=== PATIENT | male | born 1960 | race Hispanic/Latino ===

== ENCOUNTER 2023-06-01 08:01 | Emergency (ER) | payer MEDICARE ==
[~2023-06-01] VITALS: Ht 172.7 cm; Wt 85.7 kg
[2023-06-01] MEDS ORDERED: TETANUS/DIPHTHERIA TOX ADULT 0.5 ML SYR ONE ×2 (08:29→19:47)
[2023-06-01] MEDS: TETANUS/DIPHTHERIA TOX ADULT 0.5 ML SYR IM ONE (08:30)
[2023-06-01] MEDS ORDERED: AMOX TR-K CLV1 EAC2 PO (10:37)
[2023-06-01 10:58] VITALS: BP 132/81; PULSE 61; RESP 16; O2SAT 98
== END 2023-06-01 10:55 | disposition home or self-care (01) ==
LOC: ER 08:07
DX: S05.12XA Contusion of eyeball and orbital tissues, left eye, initial encounter (principal); S09.92XA Unspecified injury of nose, initial encounter; Y04.0XXA Assault by unarmed brawl or fight, initial encounter; Y92.89 Other specified places as the place of occurrence of the external cause; G70.00 Myasthenia gravis without (acute) exacerbation; K21.9 Gastro-esophageal reflux disease without esophagitis; F17.210 Nicotine dependence, cigarettes, uncomplicated
CPT/HCPCS: 70450; 70486; 72125; 90471; 90714; 99283

== ENCOUNTER → 2023-09-23 | Day surgery (SDC) | payer MEDICARE ==
[~2023-09-23] MED LIST: AMOX TR-K CLV1 EAC2 PO; CELEBREX100 MG PO; GLYCOPYRROLATE INJ 0.2 MG/ML VIAL ONE; LIDOCAINE HCL 2% LOCAL INJ 5 ML SDV VIAL INJ ONE; MESTINON60 MG PO; MULTI-VITAMIN1 EACH PO; PANTOPRAZOLE SO40 MG PO; PROPOFOL IV EMULSION 10 MG/ML 20 ML VIAL ONE
[2023-09-23] MEDS: LACTATED RINGER'S 1,000 ML ONE (07:36)
[2023-09-23 08:37] VITALS: TEMP 97
[2023-09-23 09:50] VITALS: BP 134/81; PULSE 85; RESP 16; O2SAT 97
== END | disposition home or self-care (01) ==
LOC: OR 07:00
PROVIDERS: ATTEND Internal Medicine Gastroenterology
DX: Z12.11 Encounter for screening for malignant neoplasm of colon (principal); D12.7 Benign neoplasm of rectosigmoid junction; K57.30 Diverticulosis of large intestine without perforation or abscess without bleeding; K64.8 Other hemorrhoids; K21.9 Gastro-esophageal reflux disease without esophagitis; G47.33 Obstructive sleep apnea (adult) (pediatric); J45.909 Unspecified asthma, uncomplicated; G70.00 Myasthenia gravis without (acute) exacerbation; G62.9 Polyneuropathy, unspecified; F17.290 Nicotine dependence, other tobacco product, uncomplicated; Z01.810 Encounter for preprocedural cardiovascular examination; Z79.899 Other long term (current) drug therapy
CPT/HCPCS: 45338; 93005; J2001; J2704; J7121; 45378; 45385